=== PATIENT | female | born 1945 | race Caucasian/White ===

== ENCOUNTER → 2017-01-28 | Outpatient (CLI) | payer MEDICARE, OTHER ==
[2017-01-28 12:06] LABS: Urine Bilirubin Negative (Negative); Urine Blood Negative /uL (Negative); Urine Color Yellow (Yellow); Urine Glucose Normal (Normal); Urine Ketone Negative (Negative); Urine Nitrite Negative (Negative)
[2017-01-28 12:08] LABS: Basophils # (auto) 0.1 uL; Basophils % (auto) 0.9 % (0.0-2.0); Eosinophils # (auto) 0.1 uL; Eosinophils % (auto) 2.1 % (0.0-7.0); Hematocrit 45.5 % (36.0-46.0); Hemoglobin 15.5 g/dL (12.2-16.2); Lymphocytes # (auto) 1.7 uL; Lymphocytes % (auto) 26.8 % (10.0-50.0); Mean Corpuscular Hemoglobin 29.8 pg (28.0-32.0); Mean Corpuscular Volume 87.4 fL (80.0-100.0); Mean Platelet Volume 10.7 fL (7.4-10.4); Monocytes # (auto) 0.5 uL; Monocytes % (auto) 8.1 % (0.0-12.0); Neutrophils % (auto) 62.1 % (37.0-80.0); Platelet Count (auto) 229 10^3/uL (140-450); Red Cell Distribution Width 14.6 % (11.6-16.0); White Blood Cell 6.5 10^3/uL (4.4-10.8)
[2017-01-28 12:34] LABS: Albumin 3.9 g/dL (3.4-5.0); Bilirubin, Direct 0.2 mg/dL (0-0.2); Bilirubin, Total 0.9 mg/dL (0.2-1.0); Calcium 9.2 mg/dL (8.5-10.1); Potassium 4.2 mmol/L (3.5-5.1)
== END | disposition home or self-care (01) ==
LOC: LAB 07:57
PROVIDERS: ATTEND Internal Medicine Cardiovascular Disease
DX: I10 Essential (primary) hypertension (principal); E78.00 Pure hypercholesterolemia, unspecified; K74.1 Hepatic sclerosis; E11.9 Type 2 diabetes mellitus without complications; E03.9 Hypothyroidism, unspecified; D64.9 Anemia, unspecified; E55.9 Vitamin D deficiency, unspecified; N39.0 Urinary tract infection, site not specified
CPT/HCPCS: 36415; 80048; 80061; 80076; 81003; 82306; 83036; 84443; 85025

== ENCOUNTER → 2017-06-11 | Outpatient (CLI) | payer MEDICARE, OTHER | END | disposition home or self-care (01) | LOC: Rad HDHVI 15:34 | PROVIDERS: ATTEND Internal Medicine Cardiovascular Disease | DX: I08.1 Rheumatic disorders of both mitral and tricuspid valves (principal); I48.1 Persistent atrial fibrillation | CPT/HCPCS: 93306 ==

== ENCOUNTER → 2017-06-17 | Outpatient (CLI) | payer MEDICARE, OTHER ==
[~2017-06-17] VITALS: Ht 161.3 cm; Wt 79.4 kg
== END | disposition home or self-care (01) ==
LOC: Rad HDHVI 08:56
PROVIDERS: ATTEND Internal Medicine Cardiovascular Disease
DX: I10 Essential (primary) hypertension (principal); I48.1 Persistent atrial fibrillation; I34.0 Nonrheumatic mitral (valve) insufficiency
CPT/HCPCS: 78452; 93017; 96374; A9500

== ENCOUNTER → 2018-05-15 | Outpatient (CLI) | payer MEDICARE, OTHER ==
[~2018-05-15] MED LIST: ASPI81TA27 PO; CHOL1CAP PO; COEN150C4 PO; FOLI1TAB6 PO; HYDR25TA4 PO; LISI40TA PO; LUTE6CAP OR; SIMV-13 PO; TRAZ50TA2 PO
[2018-05-15 12:49] LABS: Urine Blood Negative /uL (Negative); Urine Specific Gravity 1.026 (1.001-1.035)
[2018-05-15 12:56] LABS: Basophils # (auto) 0.1 uL; Eosinophils # (auto) 0.1 uL; Eosinophils % (auto) 1.7 % (0.0-7.0); Hematocrit 44.2 % (36.0-46.0); Hemoglobin 15.2 g/dL (12.2-16.2); Lymphocytes # (auto) 1.5 uL; Lymphocytes % (auto) 24.1 % (10.0-50.0); Mean Corpuscular Hemoglobin 30.2 pg (28.0-32.0); Mean Corpuscular Hgb Conc. 34.4 g/dL (32.0-36.0); Mean Corpuscular Volume 87.8 fL (80.0-100.0); Monocytes # (auto) 0.5 uL; Monocytes % (auto) 8.6 % (0.0-12.0); Neutrophils # (auto) 4.1 uL; Neutrophils % (auto) 64.6 % (37.0-80.0); Nucleated Red Blood Cells % 0.1 %; Platelet Count (auto) 199 10^3/uL (140-450); Red Blood Cells 5.03 10^6/uL (4.0-5.20); Red Cell Distribution Width 14.1 % (11.8-14.3); White Blood Cell 6.3 10^3/uL (4.4-10.8)
[2018-05-15 13:07] LABS: BUN/Creatinine Ratio 26.1; Bilirubin, Direct 0.2 mg/dL (0-0.2); Bilirubin, Total 0.8 mg/dL (0.2-1.0); Calcium 8.9 mg/dL (8.5-10.1); Potassium 3.8 mmol/L (3.5-5.1); Total Protein 7.2 g/dL (6.4-8.2)
== END | disposition home or self-care (01) ==
LOC: LAB 08:20
PROVIDERS: ATTEND Internal Medicine Cardiovascular Disease
DX: I10 Essential (primary) hypertension (principal); E11.9 Type 2 diabetes mellitus without complications; E78.5 Hyperlipidemia, unspecified; E03.9 Hypothyroidism, unspecified; K74.1 Hepatic sclerosis; E55.9 Vitamin D deficiency, unspecified; N39.0 Urinary tract infection, site not specified; D51.9 Vitamin B12 deficiency anemia, unspecified; Z87.891 Personal history of nicotine dependence
CPT/HCPCS: 36415; 80048; 80061; 80076; 81003; 82306; 82607; 83036; 84443; 85025

== ENCOUNTER 2019-02-27 07:33 | Emergency (ER) | payer MEDICARE, OTHER ==
[~2019-02-27] VITALS: Ht 160 cm; Wt 78.9 kg
[2019-02-27 10:48] VITALS: BP 109/90
== END 2019-02-27 11:03 | disposition short-term general hospital (02) ==
LOC: ER 07:38
DX: S01.01XA Laceration without foreign body of scalp, initial encounter (principal); S09.8XXA Other specified injuries of head, initial encounter; Z88.2 Allergy status to sulfonamides; Z88.8 Allergy status to other drugs, medicaments and biological substances; Z79.899 Other long term (current) drug therapy; W06.XXXA Fall from bed, initial encounter; Y93.84 Activity, sleeping; Y92.092 Bedroom in other non-institutional residence as the place of occurrence of the external cause; Y99.8 Other external cause status
CPT/HCPCS: 70450

== ENCOUNTER 2019-03-31 08:27 | Inpatient (IN) | payer MEDICARE, OTHER ==
[~2019-03-31] VITALS: Ht 160 cm; Wt 84.9 kg
[~2019-03-31 08:27] MED LIST changes: +ASPI-404 PO; -ASPI81TA27 PO
[2019-03-31] MEDS ORDERED: SODIUM CHLORIDE 0.9% 500 ML IVB ONE (08:52)
[2019-03-31] MEDS ORDERED: SODIUM CHLORIDE 0.9% 1,000 ML IV ONE ×2 (08:52→11:46)
[2019-03-31 09:15] LABS: Hemoglobin 11.7 g/dL (12.2-16.2); Lymphocytes # (auto) 1.5 uL; Monocytes # (auto) 1.1 uL; Monocytes % (auto) 6.2 % (0.0-12.0)
[2019-03-31 09:16] LABS: Basophils # (auto) 0.2 uL; Basophils % (auto) 0.9 % (0.0-2.0); Eosinophils # (auto) 0 uL; Eosinophils % (auto) 0.2 % (0.0-7.0); Hematocrit 35.6 % (36.0-46.0); Lymphocytes % (auto) 8.5 % (10.0-50.0); Mean Corpuscular Hemoglobin 26.8 pg (28.0-32.0); Mean Corpuscular Hgb Conc. 32.9 g/dL (32.0-36.0); Mean Corpuscular Volume 81.6 fL (80.0-100.0); Neutrophils # (auto) 14.8 uL; Neutrophils % (auto) 84.2 % (37.0-80.0); Platelet Count (auto) 370 10^3/uL (140-450); Red Blood Cells 4.36 10^6/uL (4.0-5.20); Red Cell Distribution Width 14.3 % (11.8-14.3); White Blood Cell 17.6 10^3/uL (4.4-10.8)
[2019-03-31 09:26] LABS: Albumin 2.6 g/dL (3.4-5.0); BUN/Creatinine Ratio 17.1; Calcium 8.1 mg/dL (8.5-10.1); Magnesium 2.5 mg/dL (1.6-2.6); Potassium 3.6 mmol/L (3.5-5.1)
[2019-03-31 09:28] LABS: INR 1.07 (0.9-1.15); Partial Thromboplastin Time 27.4 sec (23.64-32.05)
[2019-03-31 09:29] LABS: Bilirubin, Total 0.6 mg/dL (0.2-1.0); Total Protein 6.2 g/dL (6.4-8.2)
[2019-03-31] MEDS ORDERED: IOHEXOL 300 MG/ML 100ML BOTTLE IJ ONE (09:47)
[2019-03-31] MEDS ORDERED: HYDROmorphone HCL 2 MG/ML VL IV ONE (12:00)
[2019-03-31] MEDS ORDERED: VANCOMYCIN 1GM/250ML 250 ML IV ONE (12:00)
[2019-03-31] MEDS ORDERED: NITROGLYCERIN 0.4 MG SL TAB SL PRN (12:00)
[2019-03-31] MEDS ORDERED: ONDANSETRON HCL 4 MG/2 ML VIAL IV PRN (12:00)
[2019-03-31] MEDS ORDERED: MORPHINE SULF INJ 2 MG/ML SYRINGE 1ML IV PRN ×2 (12:00)
[2019-03-31] MEDS ORDERED: METOCLOPRAMIDE HCL 5MG/ml INJ 2ml VIAL IV ONE (12:00)
[2019-03-31 12:22] LABS: Urine Bacteria NONE SEEN /hpf (None Seen); Urine Blood Negative /uL (Negative); Urine Mucus FEW (None Seen); Urine WBC <1 /hpf (0 - 5)
[2019-03-31] MEDS: SOD CHL 0.9%/ KCL 20MEQ 1,000 ML IV SCH ×2 (12:55→22:04)
--- NOTE | 2019-03-31 13:25 | NUR ---
Roland catheter discontinued. Order to discontinue Roland catheter. Roland dc'd with clean technique following deflation of balloon. Patient tolerated well with no complaints of pain. Continue care. Addendum: 03/31/19 at 1719 by Milly Chavarria RN Please Disregard note, wrong patient.
--- NOTE | 2019-03-31 14:50 | NUR ---
SBAR Report receivedfrom Cristina PERKINS RN.
--- NOTE | 2019-03-31 15:18 | NUR ---
Telemetry admit from ER [facility] admitted to Telemetry unit after SBAR received. Patient oriented to Milly Chavarria, primary RN, unit, room, bed, and unit policies regarding patient care and visiting hours. Patient now on continuous telemetry monitoring, tele box #[id number] and telemetry reading on arrival to unit is SR.Patient encouraged to call if they need something. All questions and concerns addressed, patient verbalized understanding. at bedside.
[2019-03-31] MEDS: metroNIDAZOLE 500MG/100ML 100 ML IV SCH ×2 (15:30→22:04)
[2019-03-31 16:35] VITALS: BP 140/62
[2019-03-31] MEDS: HYDROcodone-ACET 5/325MG TAB PO PRN ×2 (17:14→23:17)
--- NOTE | 2019-03-31 19:09 | NUR ---
CLOSING NOTE PATIENT COMFORTABLY RESTING IN BED. BED AT LOWEST LOCKED POSITION AND CALL LIGHT WITHIN REACH. AT BEDSIDE. WILL ENDORSE CARE TO NOC RN.
--- NOTE | 2019-03-31 19:30 | NUR ---
Opening Shift Note Assumed care of patient, awake and alert oriented x4. No S/S of distress/SOB noted. Bed is in lowest locked position with bed rails up x2 and call light is within reach of the patient. Instructed on POC and to call for assist PRN.
[2019-03-31 21:31] VITALS: BP 124/61
[2019-03-31] MEDS: traZODone HCL 50 MG TAB PO SCH (22:01)
[2019-03-31] MEDS: ACETAMINOPHEN 500 MG TAB PO PRN (22:02)
[2019-03-31] MEDS: ATORVASTATIN 20 MG TAB PO SCH (22:02)
[2019-03-31] MEDS: DOCUSATE SOD 100 MG CAP PO SCH (22:02)
[2019-04-01] VITALS (7 sets, daily range): BP systolic 98–128; BP diastolic 51–87
[2019-04-01] MEDS: HYDROcodone-ACET 5/325MG TAB PO PRN ×2 (05:35→17:05)
[2019-04-01] MEDS: metroNIDAZOLE 500MG/100ML 100 ML IV SCH ×3 (05:35→22:27)
[2019-04-01 06:28] LABS: Basophils # (auto) 0.1 uL; Basophils % (auto) 0.3 % (0.0-2.0); Eosinophils # (auto) 0 uL; Eosinophils % (auto) 0.1 % (0.0-7.0); Hematocrit 31.4 % (36.0-46.0); Hemoglobin 10.6 g/dL (12.2-16.2); Lymphocytes # (auto) 1.3 uL; Mean Corpuscular Hemoglobin 27.2 pg (28.0-32.0); Mean Corpuscular Hgb Conc. 33.9 g/dL (32.0-36.0); Mean Corpuscular Volume 80.4 fL (80.0-100.0); Monocytes # (auto) 1.2 uL; Monocytes % (auto) 5.4 % (0.0-12.0); Neutrophils # (auto) 19.6 uL; Neutrophils % (auto) 88.2 % (37.0-80.0); Platelet Count (auto) 323 10^3/uL (140-450); Red Blood Cells 3.91 10^6/uL (4.0-5.20); Red Cell Distribution Width 14.2 % (11.8-14.3); White Blood Cell 22.3 10^3/uL (4.4-10.8)
[2019-04-01 06:33] LABS: INR 1.16 (0.9-1.15); Partial Thromboplastin Time 30.8 sec (23.64-32.05)
[2019-04-01 06:45] LABS: Albumin 2.2 g/dL (3.4-5.0); BUN/Creatinine Ratio 12.3; Calcium 7.5 mg/dL (8.5-10.1); Potassium 3.3 mmol/L (3.5-5.1)
[2019-04-01 06:48] LABS: Bilirubin, Total 0.8 mg/dL (0.2-1.0); Total Protein 5.5 g/dL (6.4-8.2)
[2019-04-01] MEDS ORDERED: fentaNYL CITRATE 5 ML ONE (07:55)
[2019-04-01] MEDS ORDERED: MIDAZOLAM HCL 1MG/1ML-2 ML VIAL ONE (07:56)
[2019-04-01] MEDS ORDERED: ROCURONIUM 10MG/ML 10ML VIAL IV ONE (08:01)
[2019-04-01] MEDS ORDERED: SUCCINYLCHOLINE CHLORIDE 20 MG/ML 10ML VIAL IV ONE (08:15)
[2019-04-01] MEDS ORDERED: LIDOCAINE HCL 2 %PF INJ 10ML AMP IJ ONE (08:15)
[2019-04-01] MEDS: ACETAMINOPHEN 500 MG TAB PO PRN (08:25)
--- NOTE | 2019-04-01 08:30 | NUR ---
Patient down at Pre-op. No s/s of distress/sob. at bedside.
[2019-04-01] MEDS ORDERED: ceFAZolin 1GM/50ML 50 ML IV ONE (08:44)
[2019-04-01] MEDS ORDERED: ceFAZolin 1GM VL ONE (08:57)
[2019-04-01] MEDS ORDERED: DexAMETHasone SOD PHOS 10MG/1ML VIAL INJ IV ONE (09:23)
[2019-04-01] MEDS ORDERED: ePHEDrine SULFATE 50 MG/ML AMP IV ONE (09:23)
[2019-04-01] MEDS ORDERED: PROPOFOL 10 MG/ML 20 ML IV ONE (09:23)
[2019-04-01] MEDS ORDERED: PHENYLEPHRINE HCL 10 MG/ML VL IV ONE (09:23)
[2019-04-01] MEDS ORDERED: GLYCOPYRROLATE 0.2 MG/ML 1ML VIAL IV ONE (09:23)
[2019-04-01] MEDS ORDERED: METOCLOPRAMIDE HCL 5MG/ml INJ 2ml VIAL IV PRN (10:00)
[2019-04-01] MEDS ORDERED: ONDANSETRON HCL 4 MG/2 ML VIAL IV PRN (10:00)
[2019-04-01] MEDS ORDERED: HYDROmorphone HCL 2 MG/ML VL IV PRN (10:00)
[2019-04-01] MEDS ORDERED: fentaNYL CITRATE 100 MCG/2 ML VL IV PRN (10:00)
[2019-04-01] MEDS: DOCUSATE SOD 100 MG CAP PO SCH ×2 (10:00→22:00)
[2019-04-01] MEDS: FAMOTIDINE 20 MG TAB PO SCH (10:00)
--- NOTE | 2019-04-01 12:20 | NUR ---
TIARA Drainage on Left lower back Collected 25ml of odorous sanguinous fluid. Will continue to monitor.
--- NOTE | 2019-04-01 14:00 | NUR ---
PAGED DR. HUSTON REGARDING PATIENTS MEDICATION RECONCILIATION. AWAITING CALL BACK.
[2019-04-01] MEDS: LEVOFLOXACIN 750MG 150 ML IV SCH (17:06)
--- NOTE | 2019-04-01 17:48 | NUR ---
assessment Patient is a 74 year old female who is alert and oriented. Prior to admission patient lived home with her and functioned independently. Patient has a fww and a cane for home use, but does not need to use them. Patient informed me she was on vacation when she became ill. Patients PCP is Dr Amanda Cordova. Patient will have help at home on discharge. I informed patient she has a consult for home health wound care and TIARA drainage care. Patient informed me she has no home health agency and has no preference on who provides service. [facility] will satisfy order. Patient verbalized understanding and agreed to discharge plan home. Addendum: 04/01/19 at 1753 by Mei ALFONSO Amended: Links added.
[2019-04-01] MEDS: SOD CHL 0.9%/ KCL 20MEQ 1,000 ML IV SCH ×2 (18:00→22:27)
--- NOTE | 2019-04-01 18:00 | NUR ---
TIARA DRAIN IRRIGATED TIARA DRAIN WITH 50ML OF STERILE NS , AFTER MEDICATING PATIENT WITH PAIN MEDICATION. PATIENT TOLERATED WELL . COLLECTED 50 CC OF SANGUINOUS FLUID.
--- NOTE | 2019-04-01 18:21 | NUR ---
D/C planning Per consult for home health wound care, martita drainage care. Information and choice letter was give to Pt. Pt had no preference for home health. Pt verbalize and agrees d/c plan. Per MICHELLE Hamilton stated pt will be d/c tomorrow morning 04/01/19. Contacted [facility] Ph: ) Fax: ( [phone]) faxed medical records. Per Emmy from [facility] pt has been accepted and service to start within 48 hrs upon d/c. Per Emmy from [facility] he will stop by tomorrow to talk to Pt 04/01/19. Informed MICHELLE Fuentes. Addendum: 04/01/19 at 1833 by CORRINE ALFONSO Amended: Links added. Addendum: 04/02/19 at 1730 by CORRINE ALFONSO Per MICHELLE granger stated pt will be d/c on 04/02/19
--- NOTE | 2019-04-01 19:01 | NUR ---
CLOSING NOTE PATIENT COMFORTABLY RESTING IN BED. BED AT LOWEST LOCKED POSITION AND CALL LIGHT WITHIN REACH. NO C/O PAIN/SOB. AT BEDSIDE. WILL ENDORSE CARE TO NOC RN
--- NOTE | 2019-04-01 19:30 | NUR ---
Opening Shift Note Assumed care of patient, awake and alertx4. Very pleasant. at bedside. TIARA drain to left side of buttock intact and secured with sutures and tape. Roland draining dark suzette colored urine. IV to left hand patent and reinforced with tape. Dressing was coming off. No S/S of distress/SOB or pain. Instructed on POC and to call for assist PRN, will continue to monitor for changes Q1hr and PRN.
[2019-04-01] MEDS: ATORVASTATIN 20 MG TAB PO SCH (22:27)
[2019-04-01] MEDS: traZODone HCL 50 MG TAB PO SCH (22:27)
[2019-04-01] MEDS ORDERED: TEMAZEPAM 15 MG CAP PO ONE (22:30)
--- NOTE | 2019-04-01 22:30 | NUR ---
Patient requested sleeping pill. Called and received order. Patient then refused med and med returned to [facility].
--- NOTE | 2019-04-01 23:00 | NUR ---
While irrigating TIARA drain, fluids started to leak and poor out around insertion site of TIARA drain. Causing a great deal of pain to patient. Stated " its burning really bad." Citlaly area and and buttocks are very pink and raw due to previous diarrhea per patient . Drain looks to be in place and sutures intact. Changed newly soaked linens and gown, and cleansed area with warm water and patted dry. Applied barrier cream to buttocks to help with any leaking causing more burning. Will continue to monitor. Addendum: 04/02/19 at 0529 by SHERINE LOPEZ RN Emptied 15 mls bright red drainage from TIARA before irrigating.
--- NOTE | 2019-04-02 00:30 | NUR ---
IV to left hand removed due to leaking and looking as if its started to infiltrate. Complained of "stinging pain" when flushing with saline. New IV started to left hand 22 G. Tolerated well. Fluids infusing per orders.
[2019-04-02] MEDS: SOD CHL 0.9%/ KCL 20MEQ 1,000 ML IV SCH ×2 (04:00→14:00)
[2019-04-02 05:27] VITALS: BP 130/75
[2019-04-02] MEDS: metroNIDAZOLE 500MG/100ML 100 ML IV SCH ×3 (06:00→21:34)
[2019-04-02 08:00] VITALS: BP_SYST 122; BP_SYST 133; BP_DIAS 64; BP_DIAS 67
[2019-04-02] MEDS: DOCUSATE SOD 100 MG CAP PO SCH ×2 (10:46→21:35)
[2019-04-02] MEDS: FAMOTIDINE 20 MG TAB PO SCH (10:46)
[2019-04-02] MEDS: ACETAMINOPHEN 500 MG TAB PO PRN (10:46)
[2019-04-02] MEDS: LEVOFLOXACIN 750MG 150 ML IV SCH (10:46)
[2019-04-02 12:00] VITALS: BP 136/66
--- NOTE | 2019-04-02 12:10 | NUR ---
TIARA DRAIN IRRIGATED TIARA DRAIN WITH 50ML OF STERILE NS , AFTER MEDICATING PATIENT WITH PAIN MEDICATION. PATIENT TOLERATED WELL . COLLECTED 60 CC OF SEROSANGUINEOUS FLUID. AT BEDSIDE.
[2019-04-02 17:00] VITALS: BP 136/66
--- NOTE | 2019-04-02 17:27 | NUR ---
Called [facility] regarding status of patients home health status. Patient has been accepted with [facility]. Patient aware.
--- NOTE | 2019-04-02 18:30 | NUR ---
DR. MEADOWS AT BEDSIDE. WANTS [facility] TO BE CANCELLED. AND WANTS [facility] ON BOARD. DESERT TAE HAS ALREADY STOPPED BY TO VISIT THE PATIENT.
--- NOTE | 2019-04-02 18:50 | NUR ---
TIARA DRAIN IRRIGATED TIARA DRAIN WITH 50ML OF STERILE NS , PATIENT C/O NS COMNG OUT OF DRAIN WHILE IRRIGATING. PATIENT TOLERATED WELL . COLLECTED 35 CC OF SEROSANGUINEOUS FLUID. AT BEDSIDE
--- NOTE | 2019-04-02 19:04 | NUR ---
CLOSING NOTE PATIENT IS COMFORTABLY RESTING IN BED. NO S/S OF DISTRESS/SOB NOTED/STATED. WILL ENDORSE CARE TO NOC RN.
--- NOTE | 2019-04-02 19:15 | NUR ---
Opening Shift Note Assumed care of patient, awake and alert. No S/S of distress/SOB or pain. Instructed on POC and to call for assist PRN, will continue to monitor for changes Q1hr and PRN. Side rails up x2. Bed locked in lowest position. Call light within reach.
--- NOTE | 2019-04-02 19:15 | NUR ---
[facility] [facility] TO INFORM HIM THAT PATIENT IS NOT BEING DISCHARGED TODAY. LEFT MESSAGE.
[2019-04-02] MEDS: ATORVASTATIN 20 MG TAB PO SCH (21:35)
[2019-04-02] MEDS: traZODone HCL 50 MG TAB PO SCH (21:35)
--- NOTE | 2019-04-02 21:36 | NUR ---
Irrigated TIARA drain with 50ml of normal saline. Emptied 40ml of serosanguineous fluid.
[2019-04-02 22:00] VITALS: BP 127/68
[2019-04-02] MEDS: HYDROcodone-ACET 5/325MG TAB PO PRN (23:12)
[2019-04-03 05:00] VITALS: BP 129/75
[2019-04-03 05:24] LABS: Basophils # (auto) 0 uL; Hemoglobin 10.5 g/dL (12.2-16.2); Lymphocytes # (auto) 2.8 uL; Monocytes # (auto) 0.7 uL; Neutrophils # (auto) 9.5 uL; Red Cell Distribution Width 14.3 % (11.8-14.3); White Blood Cell 13.3 10^3/uL (4.4-10.8)
[2019-04-03 05:26] LABS: Basophils % (auto) 0.4 % (0.0-2.0); Eosinophils # (auto) 0.2 uL; Eosinophils % (auto) 1.2 % (0.0-7.0); Hematocrit 31.5 % (36.0-46.0); Lymphocytes % (auto) 21.3 % (10.0-50.0); Mean Corpuscular Hemoglobin 27.1 pg (28.0-32.0); Mean Corpuscular Hgb Conc. 33.3 g/dL (32.0-36.0); Mean Corpuscular Volume 81.4 fL (80.0-100.0); Monocytes % (auto) 5.6 % (0.0-12.0); Neutrophils % (auto) 71.5 % (37.0-80.0); Platelet Count (auto) 422 10^3/uL (140-450); Red Blood Cells 3.87 10^6/uL (4.0-5.20)
--- NOTE | 2019-04-03 06:01 | NUR ---
Irrigated TIARA drain with 50ml of normal saline. Emptied 55ml of serosanguineous fluid.
[2019-04-03] MEDS: metroNIDAZOLE 500MG/100ML 100 ML IV SCH ×2 (06:18→13:57)
[2019-04-03] MEDS: SOD CHL 0.9%/ KCL 20MEQ 1,000 ML IV SCH ×2 (06:18→10:29)
--- NOTE | 2019-04-03 07:30 | NUR ---
Opening Shift Note RECEIVED REPORT FROM NOC RN. Assumed care of patient, awake and alert. No S/S of distress/SOB or pain. BED IN LOWEST, LOCKED POSITION WITH SIDERAILS UP x2. Instructed on POC and to call for assist PRN, will continue to monitor for changes Q1hr and PRN.
--- NOTE | 2019-04-03 07:38 | NUR ---
Endorsed care to day shift RN. Patient in bed asleep with no signs of distress.
[2019-04-03 08:10] VITALS: BP 134/70
[2019-04-03 09:00] VITALS: BP 134/70
[2019-04-03] MEDS: FAMOTIDINE 20 MG TAB PO SCH (10:29)
[2019-04-03] MEDS: LEVOFLOXACIN 750MG 150 ML IV SCH (10:29)
[2019-04-03] MEDS: DOCUSATE SOD 100 MG CAP PO SCH (10:29)
[2019-04-03 13:00] VITALS: BP 140/76
--- NOTE | 2019-04-03 14:17 | NUR ---
RECEIVED CALL FROM AKIN ZHANG REGARDING PATIENT'S HOME HEALTH SERVICE. [facility] WILL BE SERVICING THE PATIENT.
--- NOTE | 2019-04-03 14:25 | NUR ---
Estimated needs based on AJBW 60.5 kg-slightly increased for sx wound healing 0729-4188 kcal (22-24 kcal/kg) 72-80 g protein (1.2-1.3 g/kg) Addendum: 04/03/19 at [address] Amended: Links added.
--- NOTE | 2019-04-03 16:00 | NUR ---
Discharge instructions given as ordered. Encourage to follow up with PMD as instructed. All questions and concerns addressed. Patient verbalized understanding. Medication reconciliation form completed and copy given to patient. IV removed with catheter intact, pressure dressing applied, sterling catheter removed. Telemetry unit returned to [facility]. Patient taken to vehicle via wheelchair with all personal belongings, accompanied by staff and family member. No distress noted at time of departure.
== END 2019-04-03 16:00 | disposition home or self-care (01) | DRG 872 ==
LOC: ER 08:29 → TELE 08:30 → TELE-WESTW 15:21
PROVIDERS: ADMIT Nurse Practitioner Acute Care; ATTEND Internal Medicine Cardiovascular Disease
PROC: 0D9Q30Z Drainage of Anus with Drainage Device, Percutaneous Approach (ICD-10-PCS; principal; 2019-04-01 09:23)
DX: A41.9 Sepsis, unspecified organism (principal); K61.2 Anorectal abscess; E44.0 Moderate protein-calorie malnutrition; L02.31 Cutaneous abscess of buttock; I10 Essential (primary) hypertension; F41.9 Anxiety disorder, unspecified; E66.9 Obesity, unspecified; F32.9 Major depressive disorder, single episode, unspecified; E78.5 Hyperlipidemia, unspecified; Z88.2 Allergy status to sulfonamides; Z88.8 Allergy status to other drugs, medicaments and biological substances; Z88.1 Allergy status to other antibiotic agents; Z68.33 Body mass index [BMI] 33.0-33.9, adult
CPT/HCPCS: 36415; 51702; 71045; 71046; 74177; 80053; 81001; 83605; 83690; 83735; 85025; 85610; 85730; 87040; 87070; 87075; 87077; 87205; 93005; 93306; 94761; 96361; 96365; 96375; G0378; J0330; J0690; J1100; J1956; J2250; J2405; J2704; J3490

== ENCOUNTER → 2019-05-20 | Outpatient (CLI) | payer MEDICARE, OTHER ==
[2019-05-20 10:38] LABS: Basophils # (auto) 0.1 uL; Basophils % (auto) 1.6 % (0.0-2.0); Eosinophils # (auto) 0.1 uL; Hemoglobin 13.6 g/dL (12.2-16.2); Monocytes # (auto) 0.5 uL; White Blood Cell 5.7 10^3/uL (4.4-10.8)
[2019-05-20 10:40] LABS: Lymphocytes # (auto) 1.3 uL; Mean Corpuscular Hemoglobin 26.8 pg (28.0-32.0); Mean Corpuscular Hgb Conc. 33.3 g/dL (32.0-36.0); Mean Corpuscular Volume 80.4 fL (80.0-100.0); Monocytes % (auto) 8.5 % (0.0-12.0); Neutrophils # (auto) 3.8 uL; Neutrophils % (auto) 66.9 % (37.0-80.0); Nucleated Red Blood Cells % 0.1 %; Platelet Count (auto) 207 10^3/uL (140-450); Red Cell Distribution Width 16.7 % (11.8-14.3)
[2019-05-20 11:29] LABS: Albumin 3.9 g/dL (3.4-5.0); Calcium 8.9 mg/dL (8.5-10.1); Potassium 4.1 mmol/L (3.5-5.1)
[2019-05-20 11:35] LABS: BUN/Creatinine Ratio 20.9; Bilirubin, Total 0.7 mg/dL (0.2-1.0); Total Protein 7.2 g/dL (6.4-8.2)
== END | disposition home or self-care (01) ==
LOC: LAB 09:37
PROVIDERS: ATTEND Internal Medicine
DX: Z12.11 Encounter for screening for malignant neoplasm of colon (principal); E78.5 Hyperlipidemia, unspecified; I10 Essential (primary) hypertension; E55.9 Vitamin D deficiency, unspecified
CPT/HCPCS: 36415; 80053; 80061; 82306; 84443; 85025

== ENCOUNTER → 2020-02-02 | Outpatient (CLI) | payer MEDICARE, OTHER ==
[2020-02-02 12:28] LABS: Urine Blood Negative /uL (Negative); Urine Specific Gravity 1.019 (1.001-1.035)
[2020-02-02 12:36] LABS: Basophils # (auto) 0.1 10 ^3/uL (0-0.2); Basophils % (auto) 1.1 % (0.0-2.0); Eosinophils # (auto) 0.1 10 ^3/uL (0-0.8); Eosinophils % (auto) 1.1 % (0.0-7.0); Hematocrit 43.6 % (36.0-46.0); Hemoglobin 14.7 g/dL (12.2-16.2); Lymphocytes # (auto) 1.3 10 ^3/uL (0.4-5.4); Lymphocytes % (auto) 21.7 % (10.0-50.0); Mean Corpuscular Hgb Conc. 33.8 g/dL (32.0-36.0); Mean Corpuscular Volume 88.6 fL (80.0-100.0); Monocytes # (auto) 0.5 10 ^3/uL (0-1.3); Monocytes % (auto) 8.1 % (0.0-12.0); Neutrophils # (auto) 4.2 10 ^3/uL (1.6-8.6); Nucleated Red Blood Cells % 0.9 %; Platelet Count (auto) 189 10^3/uL (140-450); Red Blood Cells 4.92 10^6/uL (4.0-5.20); Red Cell Distribution Width 13.6 % (11.8-14.3); White Blood Cell 6.2 10^3/uL (4.4-10.8)
[2020-02-02 12:45] LABS: Free T4 (Free Thyroxine) 1.17 ng/dL (0.89-1.76)
[2020-02-02 12:49] LABS: Potassium 3.6 mmol/L (3.5-5.1)
[2020-02-02 13:04] LABS: Albumin 3.7 g/dL (3.4-5.0); Bilirubin, Total 1.2 mg/dL (0.2-1.0); Calcium 9.1 mg/dL (8.5-10.1); Total Protein 6.9 g/dL (6.4-8.2)
== END | disposition home or self-care (01) ==
LOC: LAB 08:46
PROVIDERS: ATTEND Internal Medicine Cardiovascular Disease
DX: E03.9 Hypothyroidism, unspecified (principal); K90.9 Intestinal malabsorption, unspecified; N39.0 Urinary tract infection, site not specified; D51.9 Vitamin B12 deficiency anemia, unspecified; Z00.00 Encounter for general adult medical examination without abnormal findings; Z79.899 Other long term (current) drug therapy
CPT/HCPCS: 36415; 80053; 80061; 81003; 82306; 82607; 83036; 84439; 84443; 85025

== ENCOUNTER → 2020-02-07 | Outpatient (CLI) | payer MEDICARE, OTHER | END | disposition home or self-care (01) | LOC: Rad HDHVI 10:55 | PROVIDERS: ATTEND Internal Medicine Cardiovascular Disease | DX: I10 Essential (primary) hypertension (principal); R00.2 Palpitations | CPT/HCPCS: 93306 ==

== ENCOUNTER → 2020-02-15 | Outpatient (CLI) | payer MEDICARE, OTHER ==
[~2020-02-15] VITALS: Ht 161.3 cm; Wt 72.6 kg
== END | disposition home or self-care (01) ==
LOC: Rad HDHVI 13:55
PROVIDERS: ATTEND Internal Medicine Cardiovascular Disease
DX: I10 Essential (primary) hypertension (principal); E78.00 Pure hypercholesterolemia, unspecified; Z82.49 Family history of ischemic heart disease and other diseases of the circulatory system
CPT/HCPCS: 78452; 93017; 96374; A9500

== ENCOUNTER → 2020-04-20 | Outpatient (CLI) | payer MEDICARE, OTHER ==
[~2020-04-20] MED LIST changes: -ASPI-404 PO; +ASPI-543 PO; -LISI40TA PO; +LISI40TA11 PO
== END | disposition home or self-care (01) ==
LOC: Rad HDHVI 13:00
PROVIDERS: ATTEND Internal Medicine Cardiovascular Disease
DX: I10 Essential (primary) hypertension (principal)

== ENCOUNTER 2020-09-07 12:17 | Inpatient (IN) | payer MEDICARE, OTHER ==
[~2020-09-07] VITALS: Ht 160 cm; Wt 32.3 kg
[2020-09-07 13:32] LABS: Basophils # (auto) 0.1 10 ^3/uL (0-0.2); Basophils % (auto) 0.7 % (0.0-2.0); Eosinophils # (auto) 0.1 10 ^3/uL (0-0.8); Eosinophils % (auto) 0.7 % (0.0-7.0); Hematocrit 43.5 % (36.0-46.0); Hemoglobin 15.3 g/dL (12.2-16.2); Lymphocytes % (auto) 8.5 % (10.0-50.0); Mean Corpuscular Hemoglobin 30.8 pg (28.0-32.0); Mean Corpuscular Hgb Conc. 35.3 g/dL (32.0-36.0); Mean Corpuscular Volume 87.4 fL (80.0-100.0); Monocytes # (auto) 0.7 10 ^3/uL (0-1.3); Monocytes % (auto) 6.3 % (0.0-12.0); Neutrophils # (auto) 9.5 10 ^3/uL (1.6-8.6); Neutrophils % (auto) 83.8 % (37.0-80.0); Nucleated Red Blood Cells % 0.2 %; Platelet Count (auto) 205 10^3/uL (140-450); Red Blood Cells 4.98 10^6/uL (4.0-5.20); Red Cell Distribution Width 13.1 % (11.8-14.3); White Blood Cell 11.3 10^3/uL (4.4-10.8)
[2020-09-07] MEDS ORDERED: SODIUM CHLORIDE 0.9% 1,000 ML IV ONE (13:45)
[2020-09-07 13:49] LABS: Albumin 3.9 g/dL (3.4-5.0); Calcium 8.6 mg/dL (8.5-10.1)
[2020-09-07 13:53] LABS: BUN/Creatinine Ratio 21.1; Bilirubin, Total 1.2 mg/dL (0.2-1.0); Total Protein 7.7 g/dL (6.4-8.2)
[2020-09-07] MEDS ORDERED: POTASSIUM CHL 20MEQ/100ML 100 ML IV ONE (15:15)
[2020-09-07 15:29] LABS: Urine Bacteria FEW /hpf (None Seen); Urine Blood TRACE /uL (Negative); Urine Hyaline Cast MANY /lpf (0 - 2); Urine Mucus FEW (None Seen); Urine Specific Gravity 1.019 (1.001-1.035); Urine WBC 138 /hpf (0 - 5); Urine WBC Clumps PRESENT /hpf (None Seen)
[2020-09-07] MEDS ORDERED: cefTRIAXone 1GM/50ML D5W 50 ML IV ONE (16:00)
[2020-09-07] MEDS ORDERED: NITROGLYCERIN 0.4 MG SL TAB SL PRN (16:45)
[2020-09-07] MEDS ORDERED: CHOLESTYRAMINE 4 GM POWDER PO PRN (16:45)
[2020-09-07] MEDS ORDERED: MORPHINE SULF INJ 2 MG/ML SYRINGE 1ML IV PRN (16:45)
[2020-09-07] MEDS ORDERED: levoFLOXacin 500MG 100 ML IV ONE (16:47)
[2020-09-08] MEDS ORDERED: CHOLECALCIFEROL (VITD3) 2,000 UNIT CAP/TAB PO SCH (10:00)
[2020-09-08] MEDS ORDERED: ZINC SULFATE 220mg CAP or TAB PO SCH (10:00)
[2020-09-08] MEDS ORDERED: IVERMECTIN 3 MG TAB PO ONE (10:00)
[2020-09-08] MEDS ORDERED: ASCORBIC ACID 500 MG TAB PO SCH (10:00)
[2020-09-08] MEDS ORDERED: POTASSIUM CHL 20 Meq TABLET PO SCH (10:00)
[2020-09-08] MEDS ORDERED: levoFLOXacin 250MG 50 ML IV SCH (10:00)
[2020-09-08 14:00] VITALS: BP 147/79
== END 2020-09-08 15:10 | disposition home or self-care (01) | DRG 690 ==
LOC: ER 12:17 → OVERFLOW 12:18
PROVIDERS: ADMIT Internal Medicine Cardiovascular Disease; ATTEND Internal Medicine Cardiovascular Disease
DX: N39.0 Urinary tract infection, site not specified (principal); E87.1 Hypo-osmolality and hyponatremia; K52.9 Noninfective gastroenteritis and colitis, unspecified; E87.6 Hypokalemia; I10 Essential (primary) hypertension; I70.8 Atherosclerosis of other arteries; K57.30 Diverticulosis of large intestine without perforation or abscess without bleeding; Z80.9 Family history of malignant neoplasm, unspecified; Z90.710 Acquired absence of both cervix and uterus; Z20.822 Contact with and (suspected) exposure to COVID-19; Z88.2 Allergy status to sulfonamides; Z88.8 Allergy status to other drugs, medicaments and biological substances
CPT/HCPCS: 36415; 74176; 80053; 81001; 83690; 85025; 87426; G0378; J0696; J1956; J3480

== ENCOUNTER → 2020-10-09 | Outpatient (CLI) | payer MEDICARE, OTHER ==
[2020-10-09 11:45] LABS: Albumin 3.8 g/dL (3.4-5.0); Potassium 3.3 mmol/L (3.5-5.1)
[2020-10-09 11:50] LABS: Basophils # (auto) 0.1 10 ^3/uL (0-0.2); Basophils % (auto) 1.1 % (0.0-2.0); Eosinophils # (auto) 0.1 10 ^3/uL (0-0.8); Eosinophils % (auto) 2.4 % (0.0-7.0); Hematocrit 42.2 % (36.0-46.0); Hemoglobin 14.5 g/dL (12.2-16.2); Lymphocytes # (auto) 1.6 10 ^3/uL (0.4-5.4); Lymphocytes % (auto) 27.1 % (10.0-50.0); Mean Corpuscular Hemoglobin 30.2 pg (28.0-32.0); Mean Corpuscular Hgb Conc. 34.3 g/dL (32.0-36.0); Monocytes # (auto) 0.6 10 ^3/uL (0-1.3); Monocytes % (auto) 9.7 % (0.0-12.0); Neutrophils # (auto) 3.6 10 ^3/uL (1.6-8.6); Neutrophils % (auto) 59.7 % (37.0-80.0); Nucleated Red Blood Cells % 0.1 %; Platelet Count (auto) 179 10^3/uL (140-450); Red Blood Cells 4.79 10^6/uL (4.0-5.20); Red Cell Distribution Width 13.4 % (11.8-14.3); White Blood Cell 6.1 10^3/uL (4.4-10.8)
[2020-10-09 11:57] LABS: Urine Blood Negative /uL (Negative)
[2020-10-09 12:01] LABS: BUN/Creatinine Ratio 25.9; Bilirubin, Total 0.8 mg/dL (0.2-1.0); Calcium 9.3 mg/dL (8.5-10.1); Total Protein 7.1 g/dL (6.4-8.2)
[2020-10-09 12:04] LABS: Free T4 (Free Thyroxine) 1.1 ng/dL (0.89-1.76)
== END | disposition home or self-care (01) ==
LOC: Rad HDHVI 08:15
PROVIDERS: ATTEND Internal Medicine Cardiovascular Disease
DX: D51.3 Other dietary vitamin B12 deficiency anemia (principal); I10 Essential (primary) hypertension; E11.9 Type 2 diabetes mellitus without complications; E55.9 Vitamin D deficiency, unspecified; D64.9 Anemia, unspecified; R00.2 Palpitations; R53.1 Weakness; R30.0 Dysuria
CPT/HCPCS: 36415; 80053; 80061; 81003; 82306; 82607; 83036; 84439; 84443; 85025; 87086

== ENCOUNTER → 2021-09-27 | Outpatient (CLI) | payer MEDICARE, OTHER ==
[2021-09-27 11:43] LABS: Urine Blood Negative /uL (Negative)
[2021-09-27 11:53] LABS: Basophils # (auto) 0.1 10 ^3/uL (0-0.2); Basophils % (auto) 0.9 % (0.0-2.0); Eosinophils # (auto) 0.1 10 ^3/uL (0-0.8); Eosinophils % (auto) 1.4 % (0.0-7.0); Hematocrit 40.3 % (36.0-46.0); Hemoglobin 13.7 g/dL (12.2-16.2); Lymphocytes # (auto) 1.6 10 ^3/uL (0.4-5.4); Lymphocytes % (auto) 23.6 % (10.0-50.0); Mean Corpuscular Hemoglobin 30.4 pg (28.0-32.0); Mean Corpuscular Hgb Conc. 33.9 g/dL (32.0-36.0); Mean Corpuscular Volume 89.6 fL (80.0-100.0); Monocytes # (auto) 0.5 10 ^3/uL (0-1.3); Monocytes % (auto) 7.5 % (0.0-12.0); Neutrophils # (auto) 4.6 10 ^3/uL (1.6-8.6); Neutrophils % (auto) 66.6 % (37.0-80.0); Nucleated Red Blood Cells % 0.1 %; Red Cell Distribution Width 13.4 % (11.8-14.3); White Blood Cell 6.8 10^3/uL (4.4-10.8)
[2021-09-27 12:26] LABS: Free T4 (Free Thyroxine) 1.22 ng/dL (0.89-1.76)
[2021-09-27 12:28] LABS: Albumin 3.7 g/dL (3.4-5.0); Calcium 8.4 mg/dL (8.5-10.1); Potassium 3.6 mmol/L (3.5-5.1)
[2021-09-27 12:33] LABS: BUN/Creatinine Ratio 13.8; Bilirubin, Total 0.8 mg/dL (0.2-1.0); Total Protein 6.9 g/dL (6.4-8.2)
== END | disposition home or self-care (01) ==
LOC: LAB 09:54
PROVIDERS: ATTEND Internal Medicine Cardiovascular Disease
DX: E11.9 Type 2 diabetes mellitus without complications (principal); D51.3 Other dietary vitamin B12 deficiency anemia; D64.9 Anemia, unspecified; E55.9 Vitamin D deficiency, unspecified; I10 Essential (primary) hypertension; R00.2 Palpitations; R53.1 Weakness; R30.0 Dysuria
CPT/HCPCS: 36415; 80053; 80061; 81003; 82306; 82607; 83036; 84439; 84443; 85025

== ENCOUNTER → 2022-07-08 | Outpatient (CLI) | payer MEDICARE, OTHER | END | disposition home or self-care (01) | LOC: Rad HDHVI 09:50 | PROVIDERS: ATTEND Internal Medicine Cardiovascular Disease | DX: I08.3 Combined rheumatic disorders of mitral, aortic and tricuspid valves (principal); I10 Essential (primary) hypertension; E78.5 Hyperlipidemia, unspecified | CPT/HCPCS: 93306 ==

== ENCOUNTER → 2022-07-09 | Outpatient (CLI) | payer MEDICARE, OTHER | END | disposition home or self-care (01) | LOC: LAB 07:28 | PROVIDERS: ATTEND Internal Medicine Cardiovascular Disease | DX: R19.5 Other fecal abnormalities (principal) | CPT/HCPCS: 85048; 87045; 87427 ==

== ENCOUNTER → 2022-07-16 | Outpatient (CLI) | payer MEDICARE, OTHER ==
[~2022-07-16] VITALS: Ht 162.6 cm; Wt 71.7 kg
== END | disposition home or self-care (01) ==
LOC: Rad HDHVI 09:09
PROVIDERS: ATTEND Internal Medicine Cardiovascular Disease
DX: I25.10 Atherosclerotic heart disease of native coronary artery without angina pectoris (principal); I10 Essential (primary) hypertension; E78.00 Pure hypercholesterolemia, unspecified; Z82.49 Family history of ischemic heart disease and other diseases of the circulatory system
CPT/HCPCS: 78452; 93017; 96374; A9500

== ENCOUNTER → 2022-07-29 | Outpatient (CLI) | payer MEDICARE, OTHER ==
[2022-07-29 12:02] LABS: Basophils # (auto) 0.1 10 ^3/uL (0-0.2); Basophils % (auto) 1.2 % (0.0-2.0); Eosinophils # (auto) 0.1 10 ^3/uL (0-0.8); Eosinophils % (auto) 1.8 % (0.0-7.0); Hematocrit 43.1 % (36.0-46.0); Hemoglobin 14.6 g/dL (12.2-16.2); Lymphocytes % (auto) 24.8 % (10.0-50.0); Mean Corpuscular Hemoglobin 29.9 pg (28.0-32.0); Mean Corpuscular Hgb Conc. 33.8 g/dL (32.0-36.0); Mean Corpuscular Volume 88.5 fL (80.0-100.0); Monocytes # (auto) 0.8 10 ^3/uL (0-1.3); Monocytes % (auto) 9.6 % (0.0-12.0); Neutrophils # (auto) 4.9 10 ^3/uL (1.6-8.6); Neutrophils % (auto) 62.6 % (37.0-80.0); Nucleated Red Blood Cells % 0.5 %; Red Blood Cells 4.88 10^6/uL (4.0-5.20); Red Cell Distribution Width 13.5 % (11.8-14.3); White Blood Cell 7.9 10^3/uL (4.4-10.8)
[2022-07-29 12:11] LABS: Potassium 3.5 mmol/L (3.5-5.1)
[2022-07-29 12:23] LABS: BUN/Creatinine Ratio 19.5; Bilirubin, Total 0.8 mg/dL (0.2-1.0); Calcium 8.9 mg/dL (8.5-10.1); Total Protein 6.8 g/dL (6.4-8.2)
[2022-07-29 12:30] LABS: Free T4 (Free Thyroxine) 1.28 ng/dL (0.89-1.76)
[2022-07-29 16:59] LABS: Urine Blood Negative /uL (Negative); Urine Specific Gravity 1.018 (1.001-1.035)
[2022-07-29 17:01] LABS: Urine Bacteria None Seen /hpf (None Seen)
[2022-07-29 17:28] LABS: Urine WBC 0-5 /hpf (0 - 5)
== END | disposition home or self-care (01) ==
LOC: LAB 09:00
PROVIDERS: ATTEND Internal Medicine Cardiovascular Disease
DX: I10 Essential (primary) hypertension (principal); E55.9 Vitamin D deficiency, unspecified
CPT/HCPCS: 36415; 80053; 80061; 81003; 81015; 82306; 82607; 83036; 84439; 84443; 85025